=== PATIENT | male | born 1970 | race Caucasian/White ===

== ENCOUNTER 2021-08-18 13:12 | Inpatient (IN) | payer OTHER ==
[2021-08-18 14:14] VITALS: BMI 29.4
[2021-08-18] MEDS ORDERED: P-EPHED 60MG/TRIPROLIDI 2.5MG TABLET PO PRN (19:58)
[2021-08-18] MEDS ORDERED: MAGNESIUM HYDROX 2400MG/30ML ORAL SUSPENSION 30 ML CUP PO PRN (19:58)
[2021-08-18] MEDS ORDERED: guaiFENesin 200 MG/10 ML 10 ML UNIT-DOSE CUPS PO PRN (19:58)
[2021-08-18] MEDS ORDERED: ACETAMINOPHEN 325 MG TABLET (FP) PO PRN (19:58)
[2021-08-18] MEDS ORDERED: MAG HYDROX/AL HYDROX/SIMETH 30 ML UNIT-DOSE CUP PO PRN (19:58)
[2021-08-18] MEDS ORDERED: LOPERAMIDE HCL 2 MG CAPSULE PO PRN (19:58)
[2021-08-18] MEDS ORDERED: NICOTINE POLACRILEX 2 MG GUM BC PRN (19:58)
[2021-08-18] MEDS ORDERED: MAGNESIUM CITRATE 300 ML BOTTLE PO PRN (19:58)
[2021-08-18] MEDS: THIAMINE HCL 100 MG TABLET (FP) PO SCH (22:05)
[2021-08-18] MEDS: MELATONIN 5 MG TABLETS PO SCH (22:05)
[2021-08-18] MEDS: ASPIRIN 81 MG CHEWABLE TABLETS PO SCH (22:06)
[2021-08-18] MEDS ORDERED: TUBERCULIN PPD 5 TU/0.1ML VIAL ID ONE (22:09)
[2021-08-19] MEDS: IBUPROFEN 400 MG TABLET (FP) PO PRN ×2 (00:49→06:50)
[2021-08-19] MEDS ORDERED: BENZOCAINE 20 % GEL TUBE MM PRN (09:58)
[2021-08-19] MEDS: PRENATAL VITAMINS W/ FOLIC ACID TABLET (FP) PO SCH (10:09)
[2021-08-19] MEDS: ASPIRIN 81 MG CHEWABLE TABLETS PO SCH (10:09)
[2021-08-19 11:47] LABS: HEMATOCRIT 41.7 % (35.4-49); MCH 30.9 pg (25.7-33.7); MCHC 33.7 g/dl (32.0-35.9); MEAN CELL VOLUME 91.7 fl (80-96); MEAN PLT VOLUME 8.1 fl (7.5-11.1); PLATELET COUNT 293 10^3/uL (134-434); RBC 4.55 M/mm3 (4.00-5.60); WHITE BLOOD COUNT 7.1 K/mm3 (4.0-10.0)
[2021-08-19 11:49] LABS: URINE APPEARANCE CLEAR; URINE BILIRUBIN NEGATIVE (NEGATIVE); URINE COLOR YELLOW; URINE GLUCOSE (UA) NEGATIVE (NEGATIVE); URINE KETONE NEGATIVE (NEGATIVE); URINE LEUK ESTERASE NEGATIVE (NEGATIVE); URINE NITRITE NEGATIVE (NEGATIVE); URINE PROTEIN NEGATIVE (NEGATIVE); URINE UROBILINOGEN 0.2 mg/dL (0.2-1.0)
[2021-08-19 12:05] LABS: BLOOD UREA NITROGEN 18.5 mg/dL (7-18); CALCIUM 8.9 mg/dL (8.5-10.1)
[2021-08-19 12:08] LABS: CREATININE 0.9 mg/dL (0.55-1.3)
[2021-08-19 12:10] LABS: TOT PROT 6.4 g/dl (6.4-8.2)
[2021-08-19 12:13] LABS: BILIRUBIN,TOTAL 0.9 mg/dL (0.2-1)
[2021-08-19 12:47] LABS: HIV INTERPRETATION NEGATIVE (NEGATIVE)
[2021-08-19] MEDS: MELATONIN 5 MG TABLETS PO SCH (21:24)
[2021-08-19] MEDS: THIAMINE HCL 100 MG TABLET (FP) PO SCH (21:24)
[2021-08-20] MEDS: ASPIRIN 81 MG CHEWABLE TABLETS PO SCH (10:09)
[2021-08-20] MEDS: PRENATAL VITAMINS W/ FOLIC ACID TABLET (FP) PO SCH (10:09)
[2021-08-20] MEDS: THIAMINE HCL 100 MG TABLET (FP) PO SCH (21:31)
[2021-08-20] MEDS: MELATONIN 5 MG TABLETS PO SCH (21:31)
[2021-08-20] MEDS: IBUPROFEN 600 MG TABLET (FP) PO PRN (21:32)
[2021-08-21] MEDS: IBUPROFEN 600 MG TABLET (FP) PO PRN ×2 (06:14→17:51)
[2021-08-21] MEDS: PRENATAL VITAMINS W/ FOLIC ACID TABLET (FP) PO SCH (10:55)
[2021-08-21] MEDS: ASPIRIN 81 MG CHEWABLE TABLETS PO SCH (10:55)
[2021-08-21] MEDS: THIAMINE HCL 100 MG TABLET (FP) PO SCH (21:27)
[2021-08-21] MEDS: MELATONIN 5 MG TABLETS PO SCH (21:27)
[2021-08-22] MEDS: IBUPROFEN 600 MG TABLET (FP) PO PRN ×3 (03:48→21:18)
[2021-08-22] MEDS: PRENATAL VITAMINS W/ FOLIC ACID TABLET (FP) PO SCH (10:00)
[2021-08-22] MEDS: ASPIRIN 81 MG CHEWABLE TABLETS PO SCH (10:00)
[2021-08-22] MEDS: THIAMINE HCL 100 MG TABLET (FP) PO SCH (21:17)
[2021-08-22] MEDS: MELATONIN 5 MG TABLETS PO SCH (21:17)
[2021-08-23] MEDS: IBUPROFEN 600 MG TABLET (FP) PO PRN ×2 (03:25→10:34)
[2021-08-23] MEDS: PRENATAL VITAMINS W/ FOLIC ACID TABLET (FP) PO SCH (09:56)
[2021-08-23] MEDS: ASPIRIN 81 MG CHEWABLE TABLETS PO SCH (09:56)
[2021-08-23] MEDS ORDERED: ACETAMINOPHEN 325 MG TABLET (FP) PO PRN (10:49)
[2021-08-23] MEDS ORDERED: BENZOCAINE 20 % GEL TUBE MM PRN (10:50)
[2021-08-23] MEDS: AMOXICILLIN 500 MG CAPSULE (FP) PO SCH ×2 (15:41→21:20)
[2021-08-23] MEDS: IBUPROFEN 400 MG TABLET (FP) PO PRN (17:47)
[2021-08-23] MEDS: THIAMINE HCL 100 MG TABLET (FP) PO SCH (21:20)
[2021-08-23] MEDS: MELATONIN 5 MG TABLETS PO SCH (21:20)
[2021-08-24] MEDS: IBUPROFEN 400 MG TABLET (FP) PO PRN ×3 (03:51→21:18)
[2021-08-24] MEDS: AMOXICILLIN 500 MG CAPSULE (FP) PO SCH ×3 (06:27→21:17)
[2021-08-24] MEDS: PRENATAL VITAMINS W/ FOLIC ACID TABLET (FP) PO SCH (09:41)
[2021-08-24] MEDS: ASPIRIN 81 MG CHEWABLE TABLETS PO SCH (09:41)
[2021-08-24] MEDS: THIAMINE HCL 100 MG TABLET (FP) PO SCH (21:17)
[2021-08-24] MEDS: MELATONIN 5 MG TABLETS PO SCH (21:17)
[2021-08-25] MEDS: IBUPROFEN 400 MG TABLET (FP) PO PRN ×3 (03:58→21:25)
[2021-08-25] MEDS: AMOXICILLIN 500 MG CAPSULE (FP) PO SCH ×3 (06:25→21:23)
[2021-08-25] MEDS: PRENATAL VITAMINS W/ FOLIC ACID TABLET (FP) PO SCH (10:42)
[2021-08-25] MEDS: ASPIRIN 81 MG CHEWABLE TABLETS PO SCH (10:42)
[2021-08-25] MEDS: MELATONIN 5 MG TABLETS PO SCH (21:23)
[2021-08-25] MEDS: THIAMINE HCL 100 MG TABLET (FP) PO SCH (21:23)
[2021-08-26] MEDS: AMOXICILLIN 500 MG CAPSULE (FP) PO SCH ×3 (06:50→21:30)
[2021-08-26] MEDS: ASPIRIN 81 MG CHEWABLE TABLETS PO SCH (10:01)
[2021-08-26] MEDS: PRENATAL VITAMINS W/ FOLIC ACID TABLET (FP) PO SCH (10:01)
[2021-08-26] MEDS: THIAMINE HCL 100 MG TABLET (FP) PO SCH (21:31)
[2021-08-26] MEDS: MELATONIN 5 MG TABLETS PO SCH (21:31)
[2021-08-26] MEDS: IBUPROFEN 400 MG TABLET (FP) PO PRN (21:31)
[2021-08-27] MEDS: AMOXICILLIN 500 MG CAPSULE (FP) PO SCH ×3 (06:14→21:21)
[2021-08-27] MEDS: ASPIRIN 81 MG CHEWABLE TABLETS PO SCH (09:36)
[2021-08-27] MEDS: PRENATAL VITAMINS W/ FOLIC ACID TABLET (FP) PO SCH (09:36)
[2021-08-27] MEDS: THIAMINE HCL 100 MG TABLET (FP) PO SCH (21:21)
[2021-08-27] MEDS: MELATONIN 5 MG TABLETS PO SCH (21:21)
[2021-08-27] MEDS: IBUPROFEN 400 MG TABLET (FP) PO PRN (21:22)
[2021-08-28] MEDS: AMOXICILLIN 500 MG CAPSULE (FP) PO SCH (06:45)
[2021-08-28] MEDS: ASPIRIN 81 MG CHEWABLE TABLETS PO SCH (09:57)
[2021-08-28] MEDS: PRENATAL VITAMINS W/ FOLIC ACID TABLET (FP) PO SCH (09:57)
[2021-08-28] MEDS: THIAMINE HCL 100 MG TABLET (FP) PO SCH (21:24)
[2021-08-28] MEDS: MELATONIN 5 MG TABLETS PO SCH (21:25)
[2021-08-28] MEDS: IBUPROFEN 400 MG TABLET (FP) PO PRN (21:26)
[2021-08-29] MEDS: ASPIRIN 81 MG CHEWABLE TABLETS PO SCH (10:02)
[2021-08-29] MEDS: PRENATAL VITAMINS W/ FOLIC ACID TABLET (FP) PO SCH (10:02)
[2021-08-29] MEDS: MELATONIN 5 MG TABLETS PO SCH (21:28)
[2021-08-29] MEDS: AMOXICILLIN 500 MG CAPSULE (FP) PO SCH (21:28)
[2021-08-29] MEDS: THIAMINE HCL 100 MG TABLET (FP) PO SCH (21:28)
[2021-08-29] MEDS: IBUPROFEN 400 MG TABLET (FP) PO PRN (21:29)
[2021-08-30] MEDS: PRENATAL VITAMINS W/ FOLIC ACID TABLET (FP) PO SCH (10:05)
[2021-08-30] MEDS: AMOXICILLIN 500 MG CAPSULE (FP) PO SCH ×2 (10:05→21:13)
[2021-08-30] MEDS: ASPIRIN 81 MG CHEWABLE TABLETS PO SCH (10:05)
[2021-08-30] MEDS: MELATONIN 5 MG TABLETS PO SCH (21:13)
[2021-08-30] MEDS: THIAMINE HCL 100 MG TABLET (FP) PO SCH (21:13)
[2021-08-31] MEDS: PRENATAL VITAMINS W/ FOLIC ACID TABLET (FP) PO SCH (10:13)
[2021-08-31] MEDS: ASPIRIN 81 MG CHEWABLE TABLETS PO SCH (10:13)
[2021-08-31] MEDS: AMOXICILLIN 500 MG CAPSULE (FP) PO SCH ×2 (10:13→21:35)
[2021-08-31] MEDS: THIAMINE HCL 100 MG TABLET (FP) PO SCH (21:35)
[2021-08-31] MEDS: MELATONIN 5 MG TABLETS PO SCH (21:35)
[2021-09-01] MEDS: PRENATAL VITAMINS W/ FOLIC ACID TABLET (FP) PO SCH (10:03)
[2021-09-01] MEDS: AMOXICILLIN 500 MG CAPSULE (FP) PO SCH ×2 (10:03→21:41)
[2021-09-01] MEDS: ASPIRIN 81 MG CHEWABLE TABLETS PO SCH (10:03)
[2021-09-01] MEDS: THIAMINE HCL 100 MG TABLET (FP) PO SCH (21:41)
[2021-09-01] MEDS: MELATONIN 5 MG TABLETS PO SCH (21:41)
[2021-09-01] MEDS: IBUPROFEN 400 MG TABLET (FP) PO PRN (21:43)
[2021-09-01] MEDS ORDERED: LIDOCAINE PATCH REMOVAL MC SCH (22:00)
[2021-09-02] MEDS: METHYL SALICYLATE/MENTHOL OINT 30 GM TUBE TP SCH ×2 (01:24→09:25)
[2021-09-02] MEDS: LIDOCAINE 5% TOPICAL PATCH TP SCH ×2 (01:25→09:25)
[2021-09-02 08:21] VITALS: BP 103/65; PULSE 64; TEMP 98.4
[2021-09-02] MEDS: PRENATAL VITAMINS W/ FOLIC ACID TABLET (FP) PO SCH (09:25)
[2021-09-02] MEDS: ASPIRIN 81 MG CHEWABLE TABLETS PO SCH (09:25)
[2021-09-02] MEDS: AMOXICILLIN 500 MG CAPSULE (FP) PO SCH (09:25)
== END 2021-09-02 09:30 | disposition left against medical advice (07) | DRG 770 ==
LOC: YASAS 13:12 → Y3W 21:09
PROVIDERS: ADMIT Allergy & Immunology; ATTEND Allergy & Immunology
PROC: HZ42ZZZ Group Counseling for Substance Abuse Treatment, Cognitive-Behavioral (ICD-10-PCS; principal; 2021-08-18)
DX: F10.20 Alcohol dependence, uncomplicated (principal); F14.20 Cocaine dependence, uncomplicated; F17.210 Nicotine dependence, cigarettes, uncomplicated; K08.89 Other specified disorders of teeth and supporting structures; K02.9 Dental caries, unspecified; Z86.79 Personal history of other diseases of the circulatory system; Z86.19 Personal history of other infectious and parasitic diseases
CPT/HCPCS: 36415; 80053; 81003; 85027; 86780; 87389; C9803; U0003; U0005